=== PATIENT | female | born 2005 | race Caucasian/White ===

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

== ENCOUNTER 2024-08-02 18:26 | Emergency (ER) | payer OTHER ==
[2024-08-02 18:35] VITALS: BP 119/80; PULSE 101; RESP 18; TEMP 97.5
--- NOTE | 2024-08-02 19:02 | ED ---
Psych HPI - General Source: patient, RN notes reviewed Mode of arrival: ambulatory <Tim Gaming - Last Filed: 08/02/24 19:00> - General Source: patient, RN notes reviewed, old records reviewed, Caregiver Mode of arrival: ambulatory Limitations: no limitations - History of Present Illness MD Complaint: suicidal ideation, feels depressed Associated Psychiatric Symptoms: depression, suicidal ideation History of same: Yes Quality: constant, getting worse Improves With: none Worsens With: none Associated Symptoms: denies other symptoms Treatments Prior to Arrival: placed on mental health hold If Self Harm: admits thoughts of self harm <Dusty Mcintyre - Last Filed: 08/02/24 20:16> - General Chief Complaint: Psychiatric Symptoms Stated Complaint: depression Time Seen by Provider: 08/02/24 18:37 - History of Present Illness Initial Comments: Quick note: This is a 18-year-old female with history of depression presenting for suicidal ideation x 3 days. Patient endorses history of suicide attempts but has not attempted today. States she does not wish to discuss possible plan she has been well in the waiting room. Denies taking any psychiatric medication at this time and is not speaking to a therapist/counselor mother. Denies auditory/visual hallucinations, HI. (Tim Gaming) - Related Data Home Medications Medication Instructions Recorded Confirmed Methylphenidate HCl [Concerta] 54 mg PO DAILY 10/02/14 10/02/14 Previous Rx's Medication Instructions Recorded Amoxicillin 250 mg PO Q8HR #150 ml 10/02/14 Amoxicillin 500 mg PO BID 10 Days #20 capsule 01/04/18 Ibuprofen 200 mg PO Q6H PRN 5 Days #20 01/04/18 capsule Allergies Allergy/AdvReac Type Severity Reaction Status Date / Time No Known Allergies Allergy Verified 01/04/18 16:59 Review of Systems ROS Other: All systems not noted in ROS Statement are negative. <Tim Gaming - Last Filed: 08/02/24 19:00> ROS Other: All systems not noted in ROS Statement are negative. <Dusty Mcintyre - Last Filed: 08/02/24 20:16> ROS Statement: Those systems with pertinent positive or pertinent negative responses have been documented in the HPI. Past Medical History Past Medical History: No Reported History History of Any Multi-Drug Resistant Organisms: None Reported Past Surgical History: No Surgical Hx Reported Past Psychological History: ADD/ADHD Smoking Status: Never smoker Past Alcohol Use History: None Reported Past Drug Use History: None Reported <Tim Gaming - Last Filed: 08/02/24 19:00> General Exam Limitations: no limitations <Tim Gaming - Last Filed: 08/02/24 19:00> General appearance: alert, in no apparent distress Head exam: Present: atraumatic, normocephalic, normal inspection Eye exam: Present: normal appearance, PERRL, EOMI. Absent: scleral icterus, co njunctival injection, periorbital swelling ENT exam: Present: normal exam, mucous membranes moist Neck exam: Present: normal inspection. Absent: tenderness, meningismus, lymphadenopathy Respiratory exam: Present: normal lung sounds bilaterally. Absent: respiratory distress, wheezes, rales, rhonchi, stridor Cardiovascular Exam: Present: regular rate, normal rhythm, normal heart sounds. Absent: systolic murmur, diastolic murmur, rubs, gallop, clicks GI/Abdominal exam: Present: soft, normal bowel sounds. Absent: distended, tenderness, guarding, rebound, rigid Extremities exam: Present: normal inspection, full ROM, normal capillary refill. Absent: tenderness, pedal edema, joint swelling, calf tenderness Back exam: Present: normal inspection Neurological exam: Present: alert, oriented X3, CN II-XII intact Psychiatric exam: Present: normal affect, normal mood Skin exam: Present: warm, dry, intact, normal color. Absent: rash <Dusty Mcintyre - Last Filed: 08/02/24 20:16> - General Exam Comments Initial Comments: Visual Physical Exam Vital signs reviewed General: Well-appearing, nontoxic, no acute distress. Head: Normocephalic, atraumatic Eyes: PERRLA, EOMI ENT: Airway patent Chest: Nonlabored breathing Skin: No visual rash, normal skin tone Neuro: Alert and oriented 3 Musculoskeletal: No gross abnormalities (Tim Gaming) Course <Dusty Mcintyre - Last Filed: 08/02/24 20:16> Vital Signs 08/02/24 18:32 Temperature 97.5 F L Pulse Rate 101 H Respiratory 18 Rate Blood Pressure 119/80 O2 Sat by Pulse 98 Oximetry - Reevaluation(s) Reevaluation #1: 08/02/24 20:15 Medical records reviewed (Dusty Mcintyre) Reevaluation #2: 08/02/24 20:15 Medically cleared for psychiatric evaluation (Dusty Mcintyre) Reevaluation #3: Was pt. sent in by a medical professional or institution (, [facility], SINGLE NEEDLE OPERATOR, urgent care, hospital, or custodial...) When possible be specific @ -no Did you speak to anyone other than the patient for history (EMS, parent, family, police, friend...)? What history was obtained from this source @ -no Did you review nursing and triage notes (agree or disagree)? Why? @ -agree Are old charts reviewed (outside hosp., previous admission, EMS record, old EKG, old radiological studies, urgent care reports/EKG's, custodial records)? Report findings @ -yes Differential Diagnosis (chest pain, altered mental status, abdominal pain women, abdominal pain men, vaginal bleeding, weakness, fever, dyspnea, syncope, headache, dizziness, GI bleed, back pain, seizure, CVA, palpatations, mental health, musculoskeletal)? @ -prior EKG interpreted by me (3pts min.). @ -yes X-rays interpreted by me (1pt min.). @ -yes negative for acute disease CT interpreted by me (1pt min.). @ -no U/S interpreted by me (1pt. min.). @ -no What testing was considered but not performed or refused? (CT, X-rays, U/S, labs)? Why? @ -none What meds were considered but not given or refused? Why? @ -none Did you discuss the management of the patient with other professionals (professionals i.e. [facility] Alvarez, SINGLE NEEDLE OPERATOR, lab, RT, psych nurse, social media specialist, pug mill operator, teacher, special loan officer, supportive employment case manager)? Give summary @ -no Was smoking cessation discussed for >3mins.? @ -no Was critical care preformed (if so, how long)? @ -no Were there social determinants of health that impacted care today? How? (Homelessness, low income, unemployed, alcoholism, drug addiction, transportation, low edu. Level, literacy, decrease access to med. care, [facility], rehab)? @ -none Was there de-escalation of care discussed even if they declined (Discuss DNR or withdrawal of care, Hospice)? DNR status @ -no What co-morbidities impacted this encounter? (DM, HTN, Smoking, COPD, CAD, Cancer, CVA, ARF, Chemo, Hep., AIDS, mental health diagnosis, sleep apnea, morbid obesity)? @ -none Was patient admitted / discharged? Hospital course, mention meds given and route, prescriptions, significant lab abnormalities, going to OR and other pertinent info. @ - Undiagnosed new problem with uncertain prognosis? @ -no Drug Therapy requiring intensive monitoring for toxicity (Heparin, Nitro, Insulin, Cardizem)? @ -no Were any procedures done? @ -no Diagnosis/symptom? @ - Acute, or Chronic, or Acute on Chronic? @ -Acute Uncomplicated (without systemic symptoms) or Complicated (systemic symptoms)? @ -Complicated Side effects of treatment? @ -no Exacerbation, Progression, or Severe Exacerbation? @ -exacerbation Poses a threat to life or bodily function? How? (Chest pain, [place], [place], pneumonia, PE, COPD, DKA, ARF, appy, cholecystitis, CVA, Diverticulitis, Homicidal, Suicidal, threat to staff... and all critical care pts) @ -yes (Dusty Mcintyre) Reevaluation #4: Differential Mental Health Depression, anxiety, bipolar, psychosis, schizophrenia, borderline personality, situational depression, adjustment disorder, behavioral disorder, brain tumor, malingering, substance abuse, encephalopathy, medication reaction, dementia, hypothyroidism, degenerative neurologic disorder, lupus.... This is not meant to be all-inclusive list (Dusty Mcintyre) Medical Decision Making <Tim Gaming - Last Filed: 08/02/24 19:00> - Medical Decision Making I completed the quick note portion of this chart signed CANDELARIO Bal (Tim Gaming) Disposition <Tim Gaming - Last Filed: 08/02/24 19:00> <Dusty Mcintyre - Last Filed: 08/02/24 20:16> Referrals: None,Stated [Primary Care Provider] - 1-2 days
[2024-08-02 21:05] LABS: Amphetamine Screen,Urine Not Detected (NotDetected); Barbiturate Screen,Urine Not Detected (NotDetected); Benzodiazepines Screen,Urine Not Detected (NotDetected); Cocaine Screen,Urine Not Detected (NotDetected); Methadone Screen, Urine Not Detected (NotDetected); Opiate Screen,Urine Not Detected (NotDetected); Oxycodone Screen, Urine Not Detected (NotDetected); Phencyclidine Screen,Urine Not Detected (NotDetected); Tricyclic Antidepressant,Urine Not Detected (NotDetected); Urn Cannabinoid Scrn Detected (NotDetected)
--- NOTE | 2024-08-02 23:57 | ED ---
Medical Decision Making - Medical Decision Making Was patient admitted / discharged? Hospital course, mention meds given and route, prescriptions, significant lab abnormalities, going to OR and other pertinent info. @ -[Patient is a 18-year-old woman who had been signed out pending EPS evaluation. The patient was evaluated by EPS, staffed with the psychiatrist, and the patient stable to continue as outpatient. They did develop safety plan. Undiagnosed new problem with uncertain prognosis? @ -[No] Drug Therapy requiring intensive monitoring for toxicity (Heparin, Nitro, Insulin, Cardizem)? @ -[No] Were any procedures done? @ -[No] Diagnosis/symptom? @ -[Mood disorder Acute, or Chronic, or Acute on Chronic? @ -[Acute uncomplicated Uncomplicated (without systemic symptoms) or Complicated (systemic symptoms)? @ -[UnComplicated Side effects of treatment? @ -[No] Exacerbation, Progression, or Severe Exacerbation? @ -[No] Poses a threat to life or bodily function? How? (Chest pain, [place], [place], pneumonia, PE, COPD, DKA, ARF, appy, cholecystitis, CVA, Diverticulitis, Homicidal, Suicidal, threat to staff... and all critical care pts) @ -[No] All treatments are based on ideal body weight as in ED triage - Lab Data Lab Results 08/02/24 Range/Units 20:33 Urine Opiates Screen Not Detected (NotDetected) Ur Oxycodone Screen Not Detected (NotDetected) Urine Methadone Screen Not Detected (NotDetected) Ur Barbiturates Screen Not Detected (NotDetected) U Tricyclic Antidepress Not Detected (NotDetected) Ur Phencyclidine Scrn Not Detected (NotDetected) Ur Amphetamines Screen Not Detected (NotDetected) U Methamphetamines Scrn Not Detected (NotDetected) U Benzodiazepines Scrn Not Detected (NotDetected) Urine Cocaine Screen Not Detected (NotDetected) U Marijuana (THC) Screen Detected H (NotDetected) Disposition Clinical Impression: Mood disorder Disposition: HOME SELF-CARE Condition: Good Instructions (If sedation given, give patient instructions): Mood Disorders (ED), Help Prevent Suicide (ED) Is patient prescribed a controlled substance at d/c from ED?: No Referrals: None,Stated [Primary Care Provider] - 1-2 days
[2024-08-03 00:36] LABS: Appearance,Urine Clear (Clear); Bilirubin,Urine Negative (Negative); Blood,Urine Negative (Negative); Color,Urine Yellow; Glucose,Urine (UA) Negative (Negative); Ketones,Urine Negative (Negative); Leukocyte Esterase,Urine Negative (Negative); Nitrite,Urine Negative (Negative); Protein,Urine Trace (Negative); Specific Gravity,Urine 1.032 (1.001-1.035)
[2024-08-03 15:10] LABS: N. gonorrhoeae,PCR Negative (Negative)
[2024-08-03 15:23] LABS: C. trachomatis,PCR Negative (Negative)
== END 2024-08-03 00:24 | disposition home or self-care (01) ==
LOC: EC 18:26
DX: F39 Unspecified mood [affective] disorder (principal)
CPT/HCPCS: 80306; 81003; 81025; 82075; 87491; 87591; 99284